=== PATIENT | female | born 1970 | race Native Hawaiian/Other Pacific Islander ===

== ENCOUNTER 2022-10-25 11:35 | Emergency (ER) | payer OTHER ==
[2022-10-25 12:23] VITALS: BP 158/97; PULSE 65; RESP 15; TEMP 98.6; BMI 24.3
[2022-10-25] MEDS ORDERED: ACETAMINOPHEN 325 MG/10.15 ML ORAL.SUSP PO ONE (12:25)
[2022-10-25] MEDS ORDERED: IBUPROFEN 600 MG TABLET (FP) PO ONE (12:25)
[2022-10-25] MEDS ORDERED: ACETAMINOPHEN 325 MG TABLET (FP) PO ONE (12:26)
== END 2022-10-25 12:39 | disposition home or self-care (01) ==
LOC: FER 11:35
DX: S09.90XA Unspecified injury of head, initial encounter (principal); S06.0X0A Concussion without loss of consciousness, initial encounter; W22.8XXA Striking against or struck by other objects, initial encounter; Y04.8XXA Assault by other bodily force, initial encounter
CPT/HCPCS: 99283-25